=== PATIENT | female | born 1950 | race Caucasian/White ===

== ENCOUNTER → 2019-04-23 17:51 | Outpatient (CLI) | payer MEDICARE, SELFPAY ==
[2019-04-23 17:53] LABS: Bacteria 0 SEEN /hpf (None Seen); Mucous, Urine 0 SEEN /hpf (<or=2+); Red Blood Cells-Urine 0 SEEN /hpf (0-5); Squamous Epithelial Cells - UA 0 SEEN /hpf (5-10)
[2019-04-23 19:03] LABS: Color, Urine Yellow (Yellow); Ketone-Dipstick 5 mg/dl (Negative); Nitrite-Dipstick Negative (Negative); Protein-Dipstick Negative (Negative); Urine Bilirubin Dipstick Negative (Negative); Urine Clarity Clear (Clear)
[2019-04-23 19:44] LABS: White Blood Cells 10-25 SEEN /hpf (0-5)
[2019-04-23 20:03] LABS: Glucose, Dipstick Normal (Normal); Occult Blood-Urine 10 /ul (Negative); Urine Urobilinogen 1 mg/dl (Normal)
[2019-04-23 20:04] LABS: Leukocyte Esterase-Dipstick 500 /ul (Negative)
== END ==
PROVIDERS: Referring Provider Nurse Practitioner Adult Health
DX: R31.29 Other microscopic hematuria (principal)
CPT/HCPCS: 81001; 87086; 87088